=== PATIENT | male | born 1970 | race Caucasian/White ===

== ENCOUNTER 2017-09-10 05:54 | Inpatient (IN) | payer OTHER ==
--- NOTE | 2017-09-01 11:08 | GHP ---
[f rep st] PREOP HISTORY AND PHYSICAL DATE OF ADMISSION: The patient will be an a.m. admission for surgery at [facility] on September 10, 2017. PROBLEM: Left hip arthritis. HISTORY OF PRESENT ILLNESS: The patient is a 47-year-old man admitted for a left hip [place] hip resurfacing arthroplasty. He has had progressive bilateral hip pain for the last couple of years. The left hip is much more painful than the right. He is having daily pain and night pain. He has given up running. He can still ride a bike but it aggravates his pain. He occasionally uses ibuprofen. He has trouble putting on his shoes and socks. He has tried physical therapy but it did not help. He had 1 cortisone injection , which did not help much. He is admitted for a left BHR. PAST MEDICAL HISTORY: He is treated for hypothyroidism and elevated cholesterol. He had a cardiac ablation 4 or 5 years ago, probably for atrial fibrillation. He has not had any subsequent problems. No history of DVT, hepatitis, or sleep apnea. CURRENT MEDICATIONS: Levothyroxine 100 mcg per day. Lovastatin 20 mg per day. ALLERGIES: Drug allergies: None. Metal allergies: None. Latex allergies: None. SOCIAL HISTORY: The patient is a CPA. He is . He does not smoke cigarettes. He occasionally drinks alcohol. FAMILY HISTORY: Unknown. PHYSICAL EXAMINATION: VITAL SIGNS: Height 5 feet 4 inches. Weight 195 pounds. BMI 33.5. EYES: Conjunctivae and sclerae are clear. Pupils are round and reactive. MOUTH: Good oral hygiene. No loose teeth. CHEST: Clear. HEART: Regular rhythm, no murmurs. EXTREMITIES: Pertinent findings are limited to his left hip. He has full hip extension and 70 degrees of flexion. As he flexes the hip, he develops a 20-degree external rotation contracture and has no further internal or external rotation. Abduction 20 degrees. IMAGING: His films show advanced degenerative arthritis in both hips. He is bone on bone in the left hip. He has a large cam lesions. Good quality bone. IMPRESSION ON ADMISSION: 1. Left bilateral hip degenerative arthritis. He is prepared for a left hip [place] hip resurfacing (BHR). 2. Treatment for hypothyroidism and elevated cholesterol. He will undergo a left hip [place] hip resurfacing arthroplasty. The surgery has been described to him, including the risks, complications, expectations, and recovery time. I have discussed with him the risk of dislocation, infection, femoral neck fracture, and sciatic nerve injury. We have also discussed extensively the potential issue with elevated metal ions. All his questions have been answered, and he consents to surgery. /[id number]/MODL MTDD
[2017-09-01 11:23] LABS: % IMMATURE GRANULYOCYTES 0.2 % (0.0-1.1); ABSOLUTE IMMATURE GRANULOCYTES 0.01 10^3/uL (0.00-0.10); ADD DIFF? NO; ADD MORPH? NO; ADD SCAN? NO; ATYPICAL LYMPHOCYTE FLAG 0 (0-99); FRAGMENT RBC FLAG 0 (0-99); HEMATOCRIT 43.9 % (40.0-51.0); HEMOGLOBIN 15.3 g/dL (13.7-17.5); LEFT SHIFT FLG 0 (0-99); LIPEMIA HEMOLYSIS FLAG 90 (0-99); MEAN CELL HEMOGLOBIN 31.4 pg (27.9-34.1); MEAN CELL HEMOGLOBIN CONCENTR. 34.9 g/dL (32.4-36.7); MEAN CELL VOLUME 90.1 fL (81.5-99.8); MEAN PLATELET VOLUME 8.8 fL (8.7-11.7); PLATELET CLUMPS FLAG 0 (0-99); PLATELET COUNT 166 10^3/uL (150-400); RED BLOOD CELL COUNT 4.87 10^6/uL (4.40-6.38); RED CELL DISTRIBUTION WIDTH 11.9 % (11.5-15.2)
[2017-09-10] MEDS ORDERED: TRANEXAMIC ACID 1,720 MG in NS 100 ML IV ONE (06:00)
[2017-09-10] MEDS ORDERED: ROPIVACAINE 0.2% 80 MG, EPINEPHrine 0.2 MG, KETOROLAC TROMETHAMINE 30 MG in BAG 0 ML IU ONE (06:00)
[2017-09-10] MEDS ORDERED: POVIDONE-IODINE 20 ML in SODIUM CL IRRIG SOLUTION 500 ML IRR ONE (06:00)
[2017-09-10] MEDS ORDERED: FAMOTIDINE 20 MG TAB PO ONE (06:17)
[2017-09-10] MEDS ORDERED: ceFAZolin 2 GM/DEXTROSE 100 ML IV ONE (06:17)
[2017-09-10] MEDS ORDERED: ACETAMINOPHEN 325 MG TAB PO ONE (06:17)
[2017-09-10] MEDS ORDERED: DEXAMETHASONE 4 MG/ML VIAL IVP ONE (06:17)
[2017-09-10] MEDS ORDERED: LIDOCAINE 1% 2 ML INJ ID PRN (06:18)
[2017-09-10] MEDS ORDERED: LR 1,000 ML IV ONE (06:18)
[2017-09-10] MEDS ORDERED: ceFAZolin 1 GM/5 ML SYR ONE (06:54)
--- NOTE | 2017-09-10 07:02 | PDANEPAE ---
ANE History of Present Illness hip resurfacing, L ANE Past Medical History - Cardiovascular History Hx Hypertension: No Hx Arrhythmias: Yes Hx Chest Pain: No Hx Coronary Artery / Peripheral Vascular Disease: No Hx CHF / Valvular Disease: No Hx Palpitations: No Cardiovascular History Comment: History of WPW, s/p ablation, HLP - Pulmonary History Hx COPD: No Hx Asthma/Reactive Airway Disease: No Hx Recent Upper Respiratory Infection: No Hx Oxygen in Use at Home: No Hx Sleep Apnea: No Sleep Apnea Screening Result - Last Documented: Negative - Neurologic History Hx Cerebrovascular Accident: No Hx Seizures: No Hx Dementia: No - Endocrine History Hx Diabetes: No Hypothyroid: No - Renal History Hx Renal Disorders: No - Liver History Hx Hepatic Disorders: No - Neurological & Psychiatric Hx Hx Neurological and Psychiatric Disorders: No - Cancer History Hx Cancer: No - Congenital Disorder History Hx Congenital Disorders: No - GI History GERD: no Hx Gastrointestinal Disorders: No - Other Health History Other Health History: NONE - Chronic Pain History Chronic Pain: No - Surgical History Prior Surgeries: HEART ABLATION, ASD ANE Review of Systems Review of Systems: - Exercise capacity METS (RN): 4 METS ANE Patient History - Allergies Allergies/Adverse Reactions: No Known Allergies Allergy (Verified 06/04/15 13:27) - Home Medications Home Medications: Levothyroxine [Synthroid 100 mcg (RX)] 100 mcg PO DAILY06 09/08/13 [Last Taken 09/08/13] Lovastatin 20 mg PO DAILY 09/08/13 [Last Taken 09/07/13] Ibuprofen [Motrin (*)] 200 mg PO DAILY PRN 08/14/17 [Last Taken Unknown] - NPO status NPO Since - Liquids (Date): 09/09/17 NPO Since - Liquids (Time): 22:30 NPO Since - Solids (Date): 09/09/17 NPO Since - Solids (Time): 22:30 - Anes Hx Anes Hx: no prior problems - Smoking Hx Smoking Status: Never smoked - Family Anes Hx Family Hx Anesthesia Complications: NONE ANE Labs/Vital Signs - Labs Result Diagrams: 09/01/17 11:12 - Vital Signs Blood Pressure: 134/95 Heart Rate: 72 Respiratory Rate: 16 O2 Sat (%): 94 Height: 165.1 cm Weight: 86.183 kg ANE Physical Exam - Airway Neck exam: FROM Mallampati Score: Class 2 - Pulmonary Pulmonary: clear to auscultation - Cardiovascular Cardiovascular: regular rate and rhythym - ASA Status ASA Status: II ANE Anesthesia Plan Anesthesia Plan: spinal
[2017-09-10] MEDS ORDERED: MIDAZOLAM 2 MG/2 ML VIAL IVP ONE (07:05)
[2017-09-10] MEDS ORDERED: BUPIVACAINE 0.5% 30 ML SDV ONE (07:08)
--- NOTE | 2017-09-10 07:08 | PDHPUP ---
History & Physical Update H&P update statement: This history and physical update is based on an assessment of the patient which was completed after admission or registration (within 24 hours), but prior to the surgery/procedure. H&P update: H&P reviewed & patient examined, no change in patient's condition since H&P completed
[2017-09-10] MEDS ORDERED: MIDAZOLAM 2 MG/2 ML VIAL ONE (07:10)
[2017-09-10] MEDS ORDERED: fentaNYL 100 MCG/2 ML INJ ONE (07:10)
[2017-09-10] MEDS ORDERED: PROPOFOL 200 MG/20 ML VIAL ONE ×5 (07:11→09:19)
[2017-09-10] MEDS ORDERED: diphenhydrAMINE 25 MG CAP PO PRN (09:44)
[2017-09-10] MEDS ORDERED: ONDANSETRON 4 MG/2 ML VIAL IVP PRN ×2 (09:44→10:02)
[2017-09-10] MEDS ORDERED: traMADol 50 MG TAB PO PRN (09:44)
[2017-09-10] MEDS ORDERED: KETOROLAC 30 MG/1 ML SDV IVP PRN (09:44)
[2017-09-10] MEDS ORDERED: TEMAZEPAM 15 MG CAP PO PRN (09:44)
[2017-09-10] MEDS ORDERED: PROMETHAZINE HCL 25 MG SUPPR PR PRN (09:44)
[2017-09-10] MEDS ORDERED: TAPENTADOL HCL 50 MG TAB PO PRN (09:44)
[2017-09-10] MEDS ORDERED: POLYETHYLENE GLYCOL 3350 17 GM PKT PO PRN (09:44)
[2017-09-10] MEDS ORDERED: PROMETHAZINE HCL 25 MG/ML INJ IVP PRN (09:44)
[2017-09-10] MEDS ORDERED: MAGNESIUM HYDROXIDE 30 ML UDCUP PO PRN (09:44)
[2017-09-10] MEDS ORDERED: ONDANSETRON DISINTEGRATING 4 MG TAB PO PRN (09:44)
[2017-09-10] MEDS ORDERED: LACTULOSE 20 GM/30 ML UDCUP PO PRN (09:44)
[2017-09-10] MEDS ORDERED: METOCLOPRAMIDE 10 MG/2 ML VIAL IVP PRN (09:44)
[2017-09-10] MEDS ORDERED: BISACODYL 10 MG SUPP PR PRN (09:44)
[2017-09-10] MEDS ORDERED: CYCLOBENZAPRINE 10 MG TAB PO PRN (09:44)
[2017-09-10] MEDS ORDERED: DIPHENOXYLATE/ATROPINE LOMOTIL 1 TAB PO PRN (09:44)
--- NOTE | 2017-09-10 09:44 | POSTOPPROG ---
Post Op Note Date of Operation: 09/10/17 Surgeon: Vivek Zepeda Pump Runner: Porfirio Vargas/Sakshi Hamlin Anesthesiologist: Dr. Best Nunez Pre-op Diagnosis: Left hip severe degenerative arthritis. Post-op Diagnosis: Left hip severe degenerative arthritis. Procedure: Left hip Lamin hip resurfacing arthroplasty. Inf/Abcess present in the surg proc area at time of surgery?: No EBL: 100-500
[2017-09-10] MEDS ORDERED: LR 1,000 ML IV SCH (10:00)
[2017-09-10] MEDS ORDERED: NALOXONE HCL 0.4 MG/ML INJ IVP PRN (10:02)
[2017-09-10] MEDS ORDERED: fentaNYL 100 MCG/2 ML INJ IVP PRN (10:02)
--- NOTE | 2017-09-10 10:42 | GOP ---
[f rep st] OPERATIVE REPORT DATE OF OPERATION: 09/10/2017 SURGEON: Vivek Zepeda MD COMMUNICATION ANALYST: Porfirio Vargas CFA. Sakshi Hamlin RN. Aashish Preciado MD. ANESTHESIA: Combination of Marcaine, spinal, and IV sedation by Dr. Best Nunez. PREOPERATIVE DIAGNOSIS: Left hip severe degenerative arthritis. POSTOPERATIVE DIAGNOSIS: Left hip severe degenerative arthritis. PROCEDURE PERFORMED: FINDINGS: DESCRIPTION OF PROCEDURE: The patient was given 2 g of IV Ancef preoperatively within 60 minutes of surgery. He also received IV tranexamic acid at a dose of 20 mg/kg. He was placed on the operating room table and given spinal anesthesia with Marcaine by Dr. Nunez. He was then placed supine and giv en IV sedation. A Dennis catheter was not used. He wore a compressive stocking and SCD on the nonope rative leg. He was rolled to the right lateral decubitus position. An axillary roll was used, and a ll pressure points were carefully padded. The position was secured with the pegboard table attachmen t. I was careful to lock his pelvis in a rigid vertical position. His perineum was isolated with pl astic adhesive drapes. His left hip and left lower extremity were prepped with ChloraPrep. They wer e draped free using sterile sheets, stockinette, and Ioban plastic drape. The World [employer] Organization time-out was performed to verify the correct patient identity and the c orrect surgical side and site. The Hoople time-out was also performed. I made a 7-inch straight oblique posterolateral hip skin incision. Subcutaneous tissues were sharply divided, and hemostasis was obtained using electrocautery. The fascia meet was identified and split along the axis of its fibers. I curved posteriorly and proximally, and split the fascia of gluteus ester and bluntly split the muscle fibers in line with their orientation. His sciatic nerve was id entified and protected throughout the procedure. The Charnley self-retaining retractor was inserted. The external rotators and the posterior hip capsule were divided as separate layers at the base of the femoral neck, tagged, and reflected posteriorly. The gluteus ester tendon was divided and tagg ed in order to improve exposure and release tension on the sciatic nerve. The hip was dislocated pos teriorly. I used a sizing gauge to check the diameter of the neck and concluded that 48 mm was the p farhat head size. I performed a circumferential capsulotomy. I was able to retract the femoral head anteriorly and superiorly, and hold it out of place with appropriate retractors. The remnant of his damaged labrum was excised. The acetabulum was reamed sequentially up to 54 mm. I selected the Birm tete monoblock porous-coated acetabular component with an outside diameter of 54 mm. This was then firmly impacted and was a very tight fit. I was careful to determine proper inclination and antever ami. I used the transverse acetabular ligament and other acetabular bony landmarks to help me prope rly orient the cup. I was careful to leave a good lip of bone and capsule extending beyond the anter ior and inferior lips of the metal cup. I then returned to preparation of the femoral head. Using appropriate jigs and guides, I inserted a guide pin into the femoral head and neck. I was careful to position it in such a way that there woul d be no notching of the neck. The large sterile metal goniometer was used to check the neck shaft an gle. I reamed over the guide pin and inserted the reaming guide. I then used the cylindrical reamer down to the head and neck junction. This was followed by the flat reamer and the chamfer reamer. T he head was sized for 48 mm. There was no impingement or damage to the neck. I drilled a small hole in the lesser trochanter and inserted a suction cannula to create negative pressure in the medullary canal. Small holes were drilled on the flattened chamfer surfaces of the prepared head for cement a nchors. The head was thoroughly cleaned with the pulsating lavage and carefully dried. I used a Car boJet device to blow dry the cancellous surfaces. A single batch of Simplex cement with tobramycin w as mixed. At about 50 seconds, I poured the liquid cement into the head component, inserted it onto the prepared femoral head, and impacted it into place. Excess cement was removed before it hardened. The acetabulum was irrigated, cleaned, and inspected, and the hip was reduced. Stability and range of motion were checked. I placed my finger along the anterior aspect of the acetabular component an d flexed the hip to 110 degrees. There was no anterior impingement. The suction cannula and the les ser trochanter were removed. The wound was thoroughly irrigated with a dilute Betadine solution. 40 mL of the joint anesthetic cocktail were injected into the capsule, the deep musculature, and the buck bcutaneous tissues along the skin edges. The sciatic nerve was reinspected and looked unharmed. The external rotators and the posterior hip c apsule were repaired in separate layers with #2 FiberWire sutures through drill holes in the greater trochanter. The gluteus ester was repaired with 2 interrupted [id number] #2 FiberWire sutures . The fascia meet was closed, first with 2 interrupted [id number] #2 FiberWire sutures, followe d by a running #2 barbed Ethicon Stratafix PDO suture. The subcutaneous tissues were closed with a r unning 0 barbed Ethicon Stratafix Monoderm suture. The skin was closed with a running 3-0 barbed Eth icon Stratafix Monoderm subcuticular suture. The skin edges were reapproximated and sealed with Derm abond glue. The wound was covered with a strip of Telfa, and everything was held in place with a pie ce of clear plastic Tegaderm. The estimated blood loss was about 400 mL. I used a [employer] Lamin hip resurfacing system. The acetabular component was 54 mm in d iameter and press-fit. The femoral head was 48 mm and cemented. He was awakened from anesthesia and rolled to the supine position on his [facility]. A long-leg compressive stocking and SCD were applied to the operative leg. An abduction pillow was placed between his knees. He was taken to PAC U in satisfactory condition. There were no recognized intraoperative complications. The sponge and needle count were correct on 2 occasions. His surgery was difficult. He had a very muscular buttocks, which made exposure difficult. Porfirio Vargas and Sakshi Hamlin acted as surgical assistants. Their assistance was a medical necessi ty for safe completion of the procedure. The patient does not have a primary care provider. OPERATION PERFORMED: A left hip Lamin hip resurfacing arthroplasty. /[id number]/MODL
--- NOTE | 2017-09-10 11:23 | POSTANESTH ---
Post Anesthetic Evaluation Cardiovascular Status: Normal, Stable Respiratory Status: Normal, Stable Level of Consciousness/Mental Status: Can Participate in Eval Pain Control: Adequate, Prn Tx Ordered Nausea/Vomiting Control: Adequate, Prn Tx Ordered Complications Possibly Related to Anesthesia: None Noted
[2017-09-10] MEDS: ACETAMINOPHEN 325 MG TAB PO SCH ×3 (13:48→23:09)
[2017-09-10] MEDS: ceFAZolin 2 GM/DEXTROSE 100 ML IV SCH ×2 (14:12→23:09)
[2017-09-10] MEDS: TRANEXAMIC ACID 650 MG TAB PO SCH ×2 (14:14→20:41)
[2017-09-10] MEDS: oxyCODONE IR 5 MG TAB PO PRN ×3 (15:50→23:51)
[2017-09-10] MEDS: SENNOSIDES/DOCUSATE SODIUM TAB PO SCH (20:41)
[2017-09-10] MEDS: FAMOTIDINE 20 MG TAB PO SCH (20:41)
[2017-09-10] MEDS: ASPIRIN 325 MG TAB PO SCH (20:45)
[2017-09-11] MEDS: oxyCODONE IR 5 MG TAB PO PRN ×2 (04:51→09:06)
[2017-09-11] MEDS: ACETAMINOPHEN 325 MG TAB PO SCH ×2 (05:00→11:11)
[2017-09-11] MEDS: TRANEXAMIC ACID 650 MG TAB PO SCH (05:00)
[2017-09-11 05:19] LABS: HEMOGLOBIN 12.8 g/dL (13.7-17.5)
[2017-09-11] MEDS ORDERED: LEVOTHYROXINE 100 MCG TAB PO SCH (06:00)
[2017-09-11 07:21] VITALS: BP 115/73; PULSE 67; RESP 14; TEMP 98.6; O2SAT 98
--- NOTE | 2017-09-11 07:21 | SOAPPROG ---
SOAP Progress Note Assessment/Plan: Assessment: Afebrile. Awake and alert. Moderate pain. Has been walking in the [place]. Dsg is dry. Sciatic nerve intact. Films look good. H/H are good. Needed cath in PACU, but voiding spont now. Plan:PT today. Home later today. 09/11/17 07:19 Objective: Vital Signs Temp Pulse Resp BP Pulse Ox 36.9 C 71 16 116/69 93 09/11/17 04:14 09/11/17 04:14 09/11/17 04:14 09/11/17 04:14 09/11/17 04:14 Laboratory Results 09/11/17 04:44 09/10/17 09/11/17 09/12/17 05:59 05:59 05:59 Intake Total 2460 Output Total 1575 Balance 885 ICD10 Worksheet Patient Problems: Problems Problem Status Onset Osteoarthritis of left hip Acute Ojlnp-[id number]-Rtnwn pattern Acute
--- NOTE | 2017-09-11 07:51 | GDS ---
[f rep st] DISCHARGE SUMMARY ADMISSION DIAGNOSIS: Left hip severe degenerative arthritis. DISCHARGE DIAGNOSIS: Left hip severe degenerative arthritis. OPERATION PERFORMED: 09/10/2017, a left hip [place] hip resurfacing arthroplasty. POSTOPERATIVE COMPLICATIONS: None. CONDITION ON DISCHARGE: Improved. DESCRIPTION OF HOSPITAL COURSE: The patient was admitted to the hospital on the morning of surgery. His admission CBC was normal. The same day, under a combination of Marcaine, spinal, and IV sedatio n, he underwent a left hip Lamin hip resurfacing arthroplasty. Postoperatively, he was treated with multimodal DVT prophylaxis, including aspirin and early mobilization. On the first postoperativ e day his hemoglobin and hematocrit were 12.8 and 37.0. He required a straight urinary catheterizati on in the PACU, but was able to void spontaneously after that. He was seen by Physical Therapy and m alec rapid progress with ambulation and stairs. By the time of discharge, he was afebrile, his wound was clean and dry, and he was independent walking. DISPOSITION: The patient is discharged to his home. He will go to outpatient physical therapy next week. Progress to full weightbearing on the right as tolerated. Use MAY stockings for 1 week. Use an abduction pillow in bed for 3 weeks. He has prescriptions for oxycodone and tramadol for pain con trol. Continue aspirin 325 mg p.o. daily for 21 days. I will see him back in the office on September 29, 2017. If there are any problems, he is to call me at the office. /[id number]/MODL
[2017-09-11] MEDS ORDERED: FERROUS SULFATE 140 MG TAB.ER PO SCH (09:00)
[2017-09-11] MEDS ORDERED: PRAVASTATIN SODIUM 20 MG TAB PO SCH (09:00)
[2017-09-11] MEDS ORDERED: NON-FORMULARY NEW DRUG (Lovastatin [Lovastatin] 20 MG) PO SCH (09:00)
[2017-09-11] MEDS: FAMOTIDINE 20 MG TAB PO SCH (09:05)
[2017-09-11] MEDS: SENNOSIDES/DOCUSATE SODIUM TAB PO SCH (09:06)
[2017-09-11] MEDS: ASPIRIN 325 MG TAB PO SCH (09:06)
--- NOTE | 2017-09-11 09:29 | ASMTCMCOM ---
CM Note CM Note Notes: Chart reviewed. Pt s/p hip arthroplasty, Per PT he will be independent and attend outpatient rehab. No needs identified. CM available to assist if needs arise. Date Signed: 09/11/2017 09:28 AM Electronically Signed By:Maki Crabtree RN
[2017-09-11] MEDS ORDERED: FLU VACC QS 2017-18 (3YR+)/PF 0.5 ML SYR (FLUARIX QUAD) IM ONE (10:06)
== END 2017-09-11 11:41 | disposition home or self-care (01) | DRG 470 ==
LOC: F3N 05:54
PROVIDERS: ADMIT Orthopaedic Surgery; ATTEND Orthopaedic Surgery
PROC: 0SRB0J9 Replacement of Left Hip Joint with Synthetic Substitute, Cemented, Open Approach (ICD-10-PCS; principal; 2017-09-10 07:15)
DX: M16.12 Unilateral primary osteoarthritis, left hip (principal); E03.9 Hypothyroidism, unspecified; E78.00 Pure hypercholesterolemia, unspecified; Z23 Encounter for immunization
CPT/HCPCS: 97116-GP; 97161-GP; 97165-GO; 97535-GO; C1713; C1769; G0008; J0171; J0690; J1100; J1885; J2250; J2704; J2765; J2795; J3010